=== PATIENT | male | born 2000 | race Caucasian/White ===

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

== ENCOUNTER 2023-11-04 21:49 | Outpatient (CLI) | payer BC, SELFPAY ==
[2023-11-04 18:40] LABS: Basophils # 0.1 K/mm3 (0-0.2); Basophils % 1.5 % (0.1-2.0); Eosinophils # 0.1 K/mm3 (0.0-0.4); Eosinophils % 1.4 % (0.1-12.0); Hematocrit 44.4 % (42.0-52.0); Hemoglobin 14.9 g/dL (14.1-18.0); Lymphocytes # 2.3 K/mm3 (0.7-4.5); Lymphocytes % 38.7 % (10-50); Mean Corpuscular HGB Conc 33.5 g/dL (31.8-35.4); Mean Corpuscular Hemoglobin 32.6 pg (27.0-31.2); Mean Corpuscular Volume 97.3 fl (80-94); Mean Platelet Volume 8.8 fl (7.4-10.4); Monocytes # 0.9 K/mm3 (0.1-1.0); Monocytes % 14.1 % (1.7-9.3); Neutrophils # 2.7 K/mm3 (1.8-7.8); Neutrophils % 44.3 % (37.0-80.0); Platelet Count 376 K/mm3 (142-424); Red Blood Count 4.56 M/mm3 (4.60-6.20); Red Cell Distribution Width 12.9 % (11.5-17.5)
[2023-11-04 19:10] LABS: Alanine Aminotransferase 24 U/L (12-78); Albumin Level 4.9 g/dl (3.5-5.0); Albumin/Globulin Ratio 1.7 (1.1-1.8); Alkaline Phosphatase 82 U/L (38-126); Anion Gap 18.9 mEq/L (5-15); Aspartate Amino Transferase 34 U/L (17-59); Bilirubin,Total 0.8 mg/dl (0.2-1.3); Blood Urea Nitrogen 9 mg/dl (9-20); Calcium 9.5 mg/dl (8.4-10.2); Carbon Dioxide 22 mmol/L (22.0-30.0); Chloride 103 mmol/L (98-107); Chol/HDL Ratio 3.9 (1-3.5); Cholesterol 193 mg/dl (140-200); Estimated Glomerular Filt Rate 107 ml/min (>60); GFR (African American) 129 ML/MIN (>60); Globulin 2.9 g/dL (1.3-3.2); Glucose 72 mg/dl (74-100); HDL Cholesterol 49 mg/dl (40-60); Potassium 3.9 mmoL/L (3.5-5.1); Sodium 140 mmol/L (136-145); Total Protein,Serum 7.8 g/dl (6.3-8.2); Triglycerides 39 mg/dl (30-150); VLDL Cholesterol 8 mg/dL (0-40)
[2023-11-04 19:21] LABS: Direct LDL Cholesterol 109.16 mg/dL (100-129)
[2023-11-04 19:27] LABS: 25-OH Vitamin D, Total 31.5 ng/mL (30-100)
[2023-11-04 19:40] LABS: Thyroid Stimulating Hormone 1.59 uIU/mL (0.465-4.68)
[2023-11-04 19:59] LABS: Vitamin B12 882 pg/mL (239-931)
[2023-11-06 15:50] LABS: Testosterone,Total 351 ng/dL (264-916)
== END 2023-11-04 23:59 ==
LOC: LAB.DROPOF 21:50
PROVIDERS: PCP Physician Assistant; Visit Provider Physician Assistant
DX: F32.A Depression, unspecified (principal)
CPT/HCPCS: 80053; 80061; 82306; 82607; 84403; 84443; 85025